=== PATIENT | male | born 1955 | race Caucasian/White ===

== ENCOUNTER → 2019-12-05 13:20 | Outpatient (BNVA) | payer MEDICARE, BC, SELFPAY | PROVIDERS: PCP Nurse Practitioner Family; Visit Provider Nurse Practitioner Family | DX: R05 Cough (principal); Z11.59 Encounter for screening for other viral diseases | CPT/HCPCS: 87071; 87400; 87635; 87880 ==

== ENCOUNTER → 2020-03-06 12:05 | Outpatient (BNVA) | payer MEDICARE, BC, SELFPAY | PROVIDERS: PCP Nurse Practitioner Family; Visit Provider Nurse Practitioner Family | DX: Z94.2 Lung transplant status (principal) | CPT/HCPCS: 87635 ==

== ENCOUNTER 2022-06-22 23:06 | Inpatient (IN) | payer MEDICARE, BC, SELFPAY ==
[2022-06-22 23:09] VITALS: BP 194/108; PULSE 89; RESP 25; TEMP 36.6; O2SAT 99; BMI 25.7
--- NOTE | 2022-06-22 23:30 | W.ED.NAVMDI ---
HPI - Nausea/Vomiting/Diarrhea General: Chief complaint: Nausea/Vomiting/Diarrhea Stated complaint: N\V Time Seen by Provider: 06/22/22 23:19 History of Present Illness: 67-year-old male patient comes in tonight with complaints of nausea vomiting and retching. Patient states that he was started on some antibiotics today for a infected wound to the lower leg. Patient appears nontoxic. Patient does have frequent episodes of retching. Associated nausea: Yes Associated symtoms: Reports nausea; Denies change in vision or chest pain Review of Systems Const: Denies: fever(s) Eyes: Denies: change in vision ENMT: Denies: throat pain Card: Denies: chest pain Resp: Denies: dyspnea GI: Reports: nausea and vomiting; Denies: diarrhea or constipation : Denies: difficulty urinating Skin/Breast: Denies: rash PFSH ED PFSH: Family History (Updated 03/05/20 @ 09:06 by Noemi Quevedo LPN, RT) Father Lung disease COPD Social History (Updated 03/05/20 @ 09:11 by Noemi Quevedo LPN, RT) Smoking and tobacco status: former smoker Quit status (tobacco): has quit using tobacco Former quit date comment: smoked 1.5 PPD x 30 yrs Second hand smoke exposure: No Alcohol intake: former Lives independently: Yes Marital status: Current occupational status: retired History of recent travel: No Current gender identity: Male Physical Exam Const: COMMON NORMALS: alert HENMT: COMMON NORMALS: normocephalic HEAD & SCALP: normocephalic Neck/C-Spine: COMMON NORMALS: full ROM Resp: COMMON NORMALS: normal respiratory effort and clear to auscultation bilaterally AUSCULTATION: clear to auscultation bilaterally Cardio: COMMON NORMALS: regular rate and regular rhythm RATE: regular rate RHYTHM: regular rhythm GI: COMMON NORMALS: Soft to palpation AUSCULTATION: Yes Hyperactive bowel sounds present PALPATION: Yes Soft to palpation : COMMON NORMALS: Yes no CVA tenderness BLADDER/KIDNEY EXAM: Yes no CVA tenderness Back/Pelvis: COMMON NORMALS: no CVA tenderness Extremity: COMMON NORMALS: full ROM Neuro: SENSORIUM/ORIENTATION: Yes alert Skin: COMMON NORMALS: turgor normal GENERAL SKIN EXAM: turgor normal Course ED course: 34, patient's lab come back noting that lipase was 164, patient continues to have episodes of retching with minimal vomit production. Patient does report some mid abdominal pain. Patient also reports that he has a history of pancreatitis. Reviewed the exam and labs with Dr. Delarosa who recommended that patient have a CT scan of the abdomen and pelvis with contrast, and patient would probably need to be admitted for dehydration and persistent vomiting. Vital Signs: Vital signs: Vital Signs Temperature 97.8 F 06/22/22 23:09 Pulse Rate 96 06/22/22 23:48 Respiratory Rate 26 H 06/22/22 23:48 Blood Pressure 188/102 06/22/22 23:48 Pulse Oximetry 100 06/22/22 23:48 Oxygen Delivery Me thod 06/22/22 23:48 MDM - Nausea/Vomiting/Diarrhea Medical Decision Making 67-year-old male patient comes in today with episodes of nausea and vomiting since starting antibiotics today for a infected wound to the left lower leg. Patient appears unwell but not toxic. Patient has a open wound to the left lower iqbal with surrounding redness. No significant edema is noted around the wound. Patient moves all extremities well. Vital signs are normal except for elevation of blood pressure at 194. 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 Differential diagnosis includes sepsis, adverse drug effect, pancreatitis. CBC showed 11,000 white count, lactate was 3.4, potassium was 3.1, creatinine was 1.4, lipase was 164. These were reviewed with Dr. Delarosa who recommended this go ahead and do a CT of the abdomen pelvis to rule out pancreatitis or other abdominal abnormality. CT noted no specific abnormality except for an incidental adrenal nodule. Patient's epigastric pain and nausea and vomiting was brought under control with a total of 4 mg of Haldol and 1 mg of Dilaudid. Believe patient probably has some dehydration and possibly early sepsis due to cellulitis of the leg. Consulted hospitalist Dr. Peter who agreed with plan for admission to hospital for IV fluids, repeat labs, antibiotics. Lab Data : 06/22/22 23:42 06/22/22 23:42 Radiology Impressions Chest X-Ray 06/23/22 00:30 IMPRESSION: No acute findings. Abdomen/Pelvis CT 06/23/22 00:34 IMPRESSION: 1. Negative for acute abdominopelvic pathology. 2. Incidental small left adrenal gland nodule. 3. Non-emergent adrenal CT is recommended. (Reference: Joey) COMMENTS: Consistent with the [employer]'s Incidental Findings Committee white paper (J Am Mayra Radiol 2018): Any incidental renal lesion less than 1 cm or classified as too small to characterize, or any incidental cystic renal lesion characterized as simple-appearing, is likely benign. No follow-up imaging is recommended for these lesions per consensus recommendations based on imaging criteria. REFERENCES: Joey NOBLE, et al. Management of Incidental Adrenal Masses: A White Paper of the ACR Incidental Findings Committee. J Am Mayra Radiol. 2017;14(8):2227-4208. Laboratory Results WBC 11.5 10^3/uL (4.0-10.0) H 06/22/22 23:42 RBC 3.92 10^6/uL (4.1-5.3) L 06/22/22 23:42 Hgb 13.7 g/dL (11.7-16.6) 06/22/22 23:42 Hct 39.9 % (42.0-52.0) L 06/22/22 23:42 MCV 101.8 fl (80-94) H 06/22/22 23:42 MCH 34.9 pg (28.0-34.0) H 06/22/22 23:42 MCHC 34.3 g/dL (30.0-36.0) 06/22/22 23:42 RDW 14.3 % (12.1-15.1) 06/22/22 23:42 Plt Count 225 10^3/cmm (130-400) 06/22/22 23:42 MPV 9.9 fL (7.4-10.4) 06/22/22 23:42 Neut % (Auto) 82.0 % 06/22/22 23:42 Lymph % (Auto) 7.2 % 06/22/22 23:42 [place] % (Auto) 8.9 % 06/22/22 23:42 Eos % (Auto) 0.3 % 06/22/22 23:42 Baso % (Auto) 0.4 % 06/22/22 23:42 Neut # (Auto) 9.42 10^3/uL (1.8-7.7) H 06/22/22 23:42 Lymph # (Auto) 0.8 10^3/uL (0.8-4.8) 06/22/22 23:42 [place] # (Auto) 1.0 10^3/uL (0.2-0.9) H 06/22/22 23:42 Eos # (Auto) 0.0 10^3/uL (0.0-0.8) 06/22/22 23:42 Baso # (Auto) 0.1 10^3/uL (0.0-0.1) 06/22/22 23:42 Nucleated RBC % (auto) 0 % 06/22/22 23:42 Nucleated RBCs # 0.0 /100WBC 06/22/22 23:42 Sodium 138 mmol/L (136-145) 06/22/22 23:42 Potassium 3.1 mmol/L (3.5-5.1) L 06/22/22 23:42 Chloride 102 mmol/L (98-107) 06/22/22 23:42 Carbon Dioxide 16 mmol/L (22-29) L 06/22/22 23:42 Anion Gap 23.1 (5-19) H 06/22/22 23:42 BUN 15 mg/dL (8-23) 06/22/22 23:42 Creatinine 1.4 mg/dL (0.7-1.2) H 06/22/22 23:42 GFR Calculation 50.4 mL/min (90-130) L 06/22/22 23:42 Glucose 161 mg/dL (65-115) H 06/22/22 23:42 Calculated Osmolality 290 mOsm/kg (285-295) 06/22/22 23:42 Lactic Acid 3.4 mmol/L (0.5-2.2) H 06/22/22 23:42 Calcium 9.6 mg/dL (8.5-10.5) 06/22/22 23:42 Total Bilirubin 0.5 mg/dL (0.15-1.2) 06/22/22 23:42 AST 23 U/L (0-40) 06/22/22 23:42 ALT 12 U/L (0-41) 06/22/22 23:42 Alkaline Phosphatase 91 U/L (40-130) 06/22/22 23:42 Troponin T Baseline 19 ng/L (0-15) H 06/22/22 23:42 C-Reactive Protein 26.4 mg/L (0.0-4.9) H 06/22/22 23:42 Total Protein 7.1 g/dL (6.6-8.7) 06/22/22 23:42 Albumin 4.3 g/dL (3.5-5.2) 06/22/22 23:42 Globulin 2.8 g/dL (1.3-4.6) 06/22/22 23:42 Lipase 162 U/L (13-60) H 06/22/22 23:42 Urine Color Violet[place] (Yellow) 06/23/22 00:00 Urine Appearance Sl hazy (CLEAR) A 06/23/22 00:00 Urine pH 5 (5-7) 06/23/22 00:00 Ur Specific [place] 1.020 (1.005-1.030) 06/23/22 00:00 Urine Protein 1+ (Negative) H 06/23/22 00:00 Urine Glucose (UA) Trace (Normal) H 06/23/22 00:00 Urine Ketones 2+ (Negative) H 06/23/22 00:00 Urine Blood Trace (Negative) H 06/23/22 00:00 Urine Nitrate Negative (Negative) 06/23/22 00:00 Urine Bilirubin 1+ (Negative) H 06/23/22 00:00 Urine Urobilinogen Norm mg/dL (Negative) 06/23/22 00:00 Ur Leukocyte Esterase Negative (Negative) 06/23/22 00:00 Urine RBC 0-4 /hpf (0-2) H 06/23/22 00:00 Urine WBC 0-4 /hpf (0-5) H 06/23/22 00:00 Ur Squamous Epith Cells 0-4 /hpf (0-5) H 06/23/22 00:00 Amorphous Sediment 1+ /hpf 06/23/22 00:00 Urine Bacteria Trace /hpf (NONE) 06/23/22 00:00 Hyaline Casts 5-10 /lpf H 06/23/22 00:00 Fine Granular Casts 0-4 /lpf H 06/23/22 00:00 Urine Mucus 2+ /hpf 06/23/22 00:00 EKG Data EKG 1: EKG interpretation date: 06/23/22 EKG interpretation time: 00:01 Prior EKG tracings: not available for review Interpretation: EKG shows a sinus rhythm with a regular rhythm of 83 bpm with frequent PVCs. No ST elevation or ectopy otherwise is noted. No prior exam was available for comparison. 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
--- NOTE | 2022-06-22 23:35 | ECG_ITS ---
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 Measurements Intervals [place] Rate: 83 P: 57 GA: 149 QRS: 66 QRSD: 97 T: 76 QT: 408 QTc: 482 Interpretive Statements SINUS RHYTHM WITH FREQUENT VENTRICULAR PREMATURE COMPLEXES MODERATE ST DEPRESSION [0.05+ mV ST DEPRESSION] No previous ECG available for comparison Electronically Signed On 06-23-2022 15:02:46 CDT by Tristian Valenzuela M.D. [email or web address] of [email or web address]. [email or web address] medical [email or web address]/store/OM/[id number]
[2022-06-22 23:45] VITALS: BP 188/102; PULSE 75; RESP 18; O2SAT 100
[2022-06-22] MEDS: sodium chloride 0.9% 1,000 ML 999 ML IV (23:45)
[2022-06-22] MEDS: haloperidol inj 5 mg/mL INJ 1 mL 2 MG IVP (23:45)
[2022-06-22 23:46] LABS: Basophils # 0.1 10^3/uL (0.0-0.1); Basophils % 0.4 %; Eosinophils % 0.3 %; Hematocrit 39.9 % (42.0-52.0); Hemoglobin 13.7 g/dL (11.7-16.6); Lymphocytes # 0.8 10^3/uL (0.8-4.8); Lymphocytes % 7.2 %; Mean Corpuscular HGB Conc 34.3 g/dL (30.0-36.0); Mean Corpuscular Hemoglobin 34.9 pg (28.0-34.0); Mean Corpuscular Volume 101.8 fl (80-94); Mean Platelet Volume 9.9 fL (7.4-10.4); Monocytes % 8.9 %; Neutrophils # 9.42 10^3/uL (1.8-7.7); Nucleated Red Blood Cells % 0 %; Platelet Count 225 10^3/cmm (130-400); Red Blood Count 3.92 10^6/uL (4.1-5.3); Red Cell Distribution Width 14.3 % (12.1-15.1); White Blood Count 11.5 10^3/uL (4.0-10.0)
[2022-06-22 23:48] VITALS: BP 188/102; PULSE 96; RESP 26; O2SAT 100
[2022-06-23] VITALS (16 sets, daily range): BP systolic 131–182; BP diastolic 72–141; PULSE 66–117; RESP 18–22; TEMP 36.7–37.1; O2SAT 95–100
[2022-06-23 00:08] LABS: Troponin(5th) Baseline 19 ng/L (0-15)
[2022-06-23 00:09] LABS: Lactic Sepsis W/Reflex 3.4 mmol/L (0.5-2.2)
[2022-06-23] MEDS: haloperidol inj 5 mg/mL INJ 1 mL 2 MG IVP (00:13)
[2022-06-23 00:25] LABS: Alanine Aminotransferase 12 U/L (0-41); Albumin Level 4.3 g/dL (3.5-5.2); Alkaline Phosphatase 91 U/L (40-130); Anion Gap 23.1 (5-19); Aspartate Amino Transferase 23 U/L (0-40); Blood Urea Nitrogen 15 mg/dL (8-23); C Reactive Protein 26.4 mg/L (0.0-4.9); Calcium 9.6 mg/dL (8.5-10.5); Carbon Dioxide 16 mmol/L (22-29); Chloride 102 mmol/L (98-107); Globulin 2.8 g/dL (1.3-4.6); Glomerular Filtration Rate 50.4 mL/min (90-130); Glucose 161 mg/dL (65-115); Lipase 162 U/L (13-60); Osmolality Calculated 290 mOsm/kg (285-295); Potassium 3.1 mmol/L (3.5-5.1); Sodium 138 mmol/L (136-145); Total Bilirubin 0.5 mg/dL (0.15-1.2); Total Protein 7.1 g/dL (6.6-8.7)
--- NOTE | 2022-06-23 00:30 | XRR_ITS ---
PROCEDURE INFORMATION: Exam: XR Chest Exam date and time: 06/23/2022 12:40 AM Age: 67 years old Clinical indication: Prior surgery; Surgery type: Double lung transplant; Patient HX: C/O persistent n/v. ; Additional info: Nausea and vomiting TECHNIQUE: Imaging protocol: Radiologic exam of the chest. Views: 1 view. COMPARISON: No relevant prior studies available. FINDINGS: Lungs: Unremarkable. No consolidation. Pleural spaces: Unremarkable. No pleural effusion. No pneumothorax. Heart/Mediastinum: Unremarkable. No cardiomegaly. Bones/joints: Unremarkable. XR/XR chest 1V portable [id number] IMPRESSION: No acute findings.
--- NOTE | 2022-06-23 00:34 | CTR_ITS ---
PROCEDURE INFORMATION: Exam: CT Abdomen And Pelvis With Contrast Exam date and time: 06/23/2022 12:53 AM Age: 67 years old Clinical indication: Nausea and vomiting; Prior surgery; Surgery type: Double lung transplant; Patient HX: C/O persistent n/v. ; Additional info: Pancreatitis TECHNIQUE: Imaging protocol: Computed tomography of the abdomen and pelvis with contrast. Radiation optimization: All CT scans at this facility use at least one of these dose optimization techniques: automated exposure control; mA and/or kV adjustment per patient size (includes targeted exams where dose is matched to clinical indication); or iterative reconstruction. Contrast material: OMNI 350; Contrast volume: 75 ml; Contrast route: INTRAVENOUS (IV); COMPARISON: CR XR chest 1V portable [id number] 06/23/2022 12:40 AM RADIATION DOSE METRICS: Total DLP (mGy-cm): 454.07 FINDINGS: Liver: Multiple simple liver cysts in both lobes. Largest individual cyst in the inferior right hepatic lobe measures 2 cm transverse diameter. Gallbladder and bile ducts: Normal. No calcified stones. No ductal dilation. Pancreas: Normal. No ductal dilation. Spleen: Normal. No splenomegaly. Adrenal glands: Left adrenal gland nodule measures 2.2 cm x 1.8 cm. Kidneys and ureters: 10 mm simple right renal lower pole cortical cyst. Negative for hydronephrosis. Stomach and bowel: Unremarkable. No obstruction. No mucosal thickening. Appendix: Normal appendix. Intraperitoneal space: Unremarkable. No free air. No significant fluid collection. Vasculature: Unremarkable. No abdominal aortic aneurysm. Diffuse calcified atherosclerotic plaques. Lymph nodes: Unremarkable. No enlarged lymph nodes. Urinary bladder: Unremarkable as visualized. Reproductive: Unremarkable as visualized. Bones/joints: Unremarkable. No acute fracture. Soft tissues: Unremarkable. Fat containing right inguinal hernia suspected. CT/CT abdomen pelvis w con* [id number] IMPRESSION: 1. Negative for acute abdominopelvic pathology. 2. Incidental small left adrenal gland nodule. 3. Non-emergent adrenal CT is recommended. (Reference: Joey) COMMENTS: Consistent with the [employer]'s Incidental Findings Committee white paper (J Am Mayra Radiol 2018): Any incidental renal lesion less than 1 cm or classified as too small to characterize, or any incidental cystic renal lesion characterized as simple-appearing, is likely benign. No follow-up imaging is recommended for these lesions per consensus recommendations based on imaging criteria. REFERENCES: Joey NOBLE et al. Management of Incidental Adrenal Masses: A White Paper of the ACR Incidental Findings Committee. J Am Mayra Radiol. 2017;14(8):0271-7029.
[2022-06-23 00:58] LABS: Reflex Lactate Order REFLEX LACTIC ORDERD
[2022-06-23] MEDS: iohexol 350 mg/mL 500 mL Btl (per mL) IV (00:58)
[2022-06-23] MEDS: sodium chloride 0.9% 1,000 ML 999 ML IV (01:06)
[2022-06-23] MEDS: lidocaine 1% 5 ML in potassium chloride premix 100 ML 50 ML IV (01:06)
[2022-06-23] MEDS: HYDROmorphone 1 mg/mL INJ 1 mL IVP (01:06)
[2022-06-23 01:15] LABS: Urine Color Amber (Yellow)
[2022-06-23 01:16] LABS: Add Urine Microscopic? YES; Bilirubin Urine 1+ (Negative); Blood Urine Trace (Negative); Glucose Urine UA Trace (Normal); Ketones Urine 2+ (Negative); Leukocyte Esterase Urine Negative (Negative); Nitrate Urine Negative (Negative); Protein Urine 1+ (Negative); Urine Appearance SL Hazy (CLEAR); Urobilinogen Urine Norm (Negative); pH Urine 5 (5-7)
[2022-06-23 01:17] LABS: Add Urine Culture? No; Amorphous Sediment Urine 1+ /hpf; Bacteria Urine TRACE /hpf; Fine Granular Casts Urine 0-4 /lpf; Mucus Urine 2+ /hpf; RBC Urine 0-4 /hpf (0-2); Squamous Epithelial Cell Urine 0-4 /hpf (0-5); WBC Urine 0-4 /hpf (0-5)
[2022-06-23 02:13] LABS: Lactic Acid level (Lactate) 1.4 mmol/L (0.5-2.2)
[2022-06-23 02:16] LABS: Troponin 5 2HR 17.05 ng/L (0-15)
[2022-06-23 02:17] LABS: Triglycerides 117 mg/dL (0-150)
[2022-06-23 02:24] LABS: Troponin 5 2HR Delta -1.95 ABS# (0-10)
[2022-06-23] MEDS: piperacillin-tazobactam 3.375 GM in sodium chloride 0.9% (plus) 50 ML IV ×3 (02:39→17:14)
[2022-06-23] MEDS: vancomycin 1,000 MG in sodium chloride 0.9% 250 ML 250 MG IV ×2 (04:14→22:54)
--- NOTE | 2022-06-23 04:40 | ECG_ITS ---
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 Measurements Intervals [place] Rate: 81 P: 63 ME: 166 QRS: 55 QRSD: 94 T: 62 QT: 408 QTc: 474 Interpretive Statements SINUS RHYTHM WITH FREQUENT VENTRICULAR PREMATURE COMPLEXES ABNORMAL RHYTHM ECG Compared to ECG 06/22/2022 23:57:50 ST (T wave) deviation no longer present Electronically Signed On 06-23-2022 15:07:06 CDT by Tristian Valenzuela M.D. [id number]
[2022-06-23] MEDS: enoxaparin 40 mg/0.4 mL Syringe SUBCUT (05:45)
[2022-06-23 05:50] LABS: Troponin 5 6HR 18.07 ng/L (0-15)
[2022-06-23 05:51] LABS: Troponin 5 6HR Delta -0.93 ng/L (0-12)
--- NOTE | 2022-06-23 06:30 | PM.HP ---
Providers/Chief Complaint Admitting Physician: Tika Peter MD Primary Care Provider: Sade Salas APN Chief Complaint: N\V History of Present Illness Harry Handy is a 67 year old male with a past medical history of lung transplant, currently on immunosuppressants presenting today with cellulitis over the left leg. Per patient he was in his usual state of health until last week on Monday when while he was going up the stairs and hit his iqbal against the stairs. He had a scrape as a result. Then starting 3 days ago the area started to look red, tender, swollen. He feels hot and cold though has not measured his temperature. No other injuries at any site. He does not think a splinter went through. He was prescribed doxycycline as an outpatient, however has not yet started his medication, he was concerned about how quickly the changes on his leg were progressing and therefore decided to come into the emergency room. In the ER here here additionally was noted to be retching and gagging and had some abdominal discomfort for which CT of the abdomen and pelvis was performed, all was overall unremarkable. Review of Systems General: Reports: 10 or more systems reviewed and unremarkable except in HPI and below Const: Denies: fever(s), chills or body aches Eyes: Denies: change in vision, blurry vision or photophobia ENMT: Reports: hoarseness; Denies: throat pain, enlarged tonsils, odynophagia or nasal congestion Card: Denies: chest pain, palpitations, irregular heart rhythm, edema, swelling of feet/ankles, lightheadedness, pre-syncope, dyspnea on exertion or orthopnea Resp: Denies: dyspnea, productive cough, non-productive cough, wheezing, stridor, pain on inspiration, change in phlegm color, hemoptysis or chest congestion GI: Denies: abdominal pain, nausea, vomiting, hematemesis, coffee ground emesis, dysphagia, heartburn, diarrhea, constipation, GI cramping, change in stool character, hematochezia or melena : Denies: flank pain, dysuria, urinary frequency, urinary urgency, urinary hesitancy or hematuria Musc: Denies: neck pain, back pain, extremity pain, joint swelling, joint warmth or deformity Neuro: Denies: headache(s), numbness in extremities, weakness in extremities, sensory changes, difficulty walking, frequent falls, dizziness, vertigo, behavioral changes, Slurred speech present or seizure-like activity Psych: Denies: anxiety, depression, suicidal ideation or homicidal ideation Endo: Denies: polyuria, polydipsia, tired all the time, cold intolerance or hot flashes Celso/Lymph: Denies: easy bruising or easy bleeding Medications/Allergies Home Medications Medication Instructions Recorded Confirmed Last Taken Type acyclovir 200 mg capsule 200 mg PO BID 12/05/19 03/05/20 Unknown History alendronate 70 mg/75 mL oral PO 12/05/19 03/05/20 Unknown History solution atorvastatin 40 mg tablet 40 mg PO DAILY 12/05/19 03/05/20 Unknown History azathioprine 50 mg tablet 150 mg PO DAILY 12/05/19 03/05/20 Unknown History calcium carbonate 500 mg-vitamin each PO 12/05/19 03/05/20 Unknown History D3 5 mcg (200 unit) oral powder pack citalopram 10 mg tablet 10 mg PO DAILY 12/05/19 03/05/20 Unknown History loratadine 10 mg tablet (Allergy 10 mg PO DAILY 12/05/19 03/05/20 Unknown History Relief (loratadine)) omeprazole 20 mg capsule,delayed 20 mg PO DAILY 12/05/19 03/05/20 Unknown History release ondansetron 8 mg oral soluble film 8 mg PO Q12H 12/05/19 03/05/20 Unknown History prednisolone 5 mg tablet 5 mg PO QAM 12/05/19 03/05/20 Unknown History prednisone 10 mg tablet 10 mg PO DAILY 12/05/19 03/05/20 Unknown History sulfamethoxazole 800 1 tab PO BID 12/05/19 03/05/20 Unknown History mg-trimethoprim 160 mg tablet (Bactrim DS) tacrolimus 1 mg capsule, 1 mg PO Q12H 12/05/19 03/05/20 Unknown History immediate-release trazodone 50 mg tablet 25 mg PO DAILY 12/05/19 03/05/20 Unknown History Allergies Allergy/AdvReac Type Severity Reaction Status Date / Time morphine Allergy RASH Verified 03/05/20 08:09 PFSH Acute PFSH: Medical History (Updated 06/23/22 @ 06:49 by Tika Peter MD) Adrenal adenoma Afib Anemia Anxiety CKD (chronic kidney disease), stage II COPD (chronic obstructive pulmonary disease) Depression Hx MRSA infection Hx of cytomegalovirus infection Hyperlipidemia Hypertension Macrocytosis JOZEF (obstructive sleep apnea) Osteopenia Vocal cord polyp Surgical History (Updated 06/23/22 @ 06:49 by Tika Peter MD) History of esophagogastroduodenoscopy (EGD) (~2016) History of vocal cord polypectomy (~08/2015) Hx of bilateral cataract extraction Hx of colonoscopy (~2016) Hx of hernia repair (~2017) Hx of lung transplant (~05/2010) bilateral Lung transplant status Family History Father Lung disease COPD Social History Smoking and tobacco status: former smoker Quit status (tobacco): has quit using tobacco Former quit date comment: smoked 1.5 PPD x 30 yrs Second hand smoke exposure: No Alcohol intake: former Lives independently: Yes Marital status: Current occupational status: retired History of recent travel: No Current gender identity: Male Vitals/I&O/Wt Last Vital Signs Temp 98.7 F 06/23/22 04:17 Pulse 87 06/23/22 04:17 Resp 19 H 06/23/22 04:17 BP 167/75 06/23/22 04:17 Pulse Ox 97 06/23/22 04:17 O2 Del Method 06/23/22 03:36 06/22/22 06/22/22 06/23/22 14:59 22:59 06:59 Intake Total 2705 / 2705 Output Total 200 / 200 Balance 2505 / 2505 Weight last 48 hrs Weight 70.307 kg Physical Exam Narrative: General: No acute distress, AO x3 HEENT: PERRLA, pupils bilaterally equal and reactive, pallors not present Chest: Normal vesicular breath sounds, no added sounds, equal good air entry bilaterally CVS: S1-S2 regular, no murmurs, no tachycardia, no gallops, no rubs Abdomen: Soft, nontender, no organomegaly, bowel sounds present Neuro: No focal deficits, no facial deformity, AO x3, power 5/5 in all limbs Extremities: Left lower extremity with shallow overlying ulceration over left mid iqbal with significant surrounding cellulitis. Area is red warm and tender to touch. Data : 06/22/22 23:42 06/22/22 23:42 Other Labs: Radiology Impressions Chest X-Ray 06/23/22 00:30 IMPRESSION: No acute findings. Abdomen/Pelvis CT 06/23/22 00:34 IMPRESSION: 1. Negative for acute abdominopelvic pathology. 2. Incidental small left adrenal gland nodule. 3. Non-emergent adrenal CT is recommended. (Reference: Joey) COMMENTS: Consistent with the [employer]'s Incidental Findings Committee white paper (J Am Mayra Radiol 2018): Any incidental renal lesion less than 1 cm or classified as too small to characterize, or any incidental cystic renal lesion characterized as simple-appearing, is likely benign. No follow-up imaging is recommended for these lesions per consensus recommendations based on imaging criteria. REFERENCES: Joey NOBLE, et al. Management of Incidental Adrenal Masses: A White Paper of the ACR Incidental Findings Committee. J Am Mayra Radiol. 2017;14(8):5758-0733. Laboratory Results WBC 11.5 10^3/uL (4.0-10.0) H 06/22/22 23:42 RBC 3.92 10^6/uL (4.1-5.3) L 06/22/22 23:42 Hgb 13.7 g/dL (11.7-16.6) 06/22/22 23:42 Hct 39.9 % (42.0-52.0) L 06/22/22 23:42 MCV 101.8 fl (80-94) H 06/22/22 23:42 MCH 34.9 pg (28.0-34.0) H 06/22/22 23:42 MCHC 34.3 g/dL (30.0-36.0) 06/22/22 23:42 RDW 14.3 % (12.1-15.1) 06/22/22 23:42 Plt Count 225 10^3/cmm (130-400) 06/22/22 23:42 MPV 9.9 fL (7.4-10.4) 06/22/22 23:42 Neut % (Auto) 82.0 % 06/22/22 23:42 Lymph % (Auto) 7.2 % 06/22/22 23:42 Barry % (Auto) 8.9 % 06/22/22 23:42 Eos % (Auto) 0.3 % 06/22/22 23:42 Baso % (Auto) 0.4 % 06/22/22 23:42 Neut # (Auto) 9.42 10^3/uL (1.8-7.7) H 06/22/22 23:42 Lymph # (Auto) 0.8 10^3/uL (0.8-4.8) 06/22/22 23:42 Barry # (Auto) 1.0 10^3/uL (0.2-0.9) H 06/22/22 23:42 Eos # (Auto) 0.0 10^3/uL (0.0-0.8) 06/22/22 23:42 Baso # (Auto) 0.1 10^3/uL (0.0-0.1) 06/22/22 23:42 Nucleated RBC % (auto) 0 % 06/22/22 23:42 Nucleated RBCs # 0.0 /100WBC 06/22/22 23:42 Sodium 138 mmol/L (136-145) 06/22/22 23:42 Potassium 3.1 mmol/L (3.5-5.1) L 06/22/22 23:42 Chloride 102 mmol/L (98-107) 06/22/22 23:42 Carbon Dioxide 16 mmol/L (22-29) L 06/22/22 23:42 Anion Gap 23.1 (5-19) H 06/22/22 23:42 BUN 15 mg/dL (8-23) 06/22/22 23:42 Creatinine 1.4 mg/dL (0.7-1.2) H 06/22/22 23:42 GFR Calculation 50.4 mL/min (90-130) L 06/22/22 23:42 Glucose 161 mg/dL (65-115) H 06/22/22 23:42 Calculated Osmolality 290 mOsm/kg (285-295) 06/22/22 23:42 Lactic Acid 3.4 mmol/L (0.5-2.2) H 06/22/22 23:42 Lactic Acid (Sepsis) 1.4 mmol/L (0.5-2.2) 06/23/22 01:46 Calcium 9.6 mg/dL (8.5-10.5) 06/22/22 23:42 Total Bilirubin 0.5 mg/dL (0.15-1.2) 06/22/22 23:42 AST 23 U/L (0-40) 06/22/22 23:42 ALT 12 U/L (0-41) 06/22/22 23:42 Alkaline Phosphatase 91 U/L (40-130) 06/22/22 23:42 Troponin T Baseline 19 ng/L (0-15) H 06/22/22 23:42 Troponin T 120 Minute 17.05 ng/L (0-15) H 06/23/22 01:46 Delta Troponin T -1.95 ABS# (0-10) L 06/23/22 01:46 Troponin T Hi Sens 6Hr 18.07 ng/L (0-15) H 06/23/22 05:17 Troponin T Hi Sens 6Hr Delta -0.93 ng/L (0-12) L 06/23/22 05:17 C-Reactive Protein 26.4 mg/L (0.0-4.9) H 06/22/22 23:42 Total Protein 7.1 g/dL (6.6-8.7) 06/22/22 23:42 Albumin 4.3 g/dL (3.5-5.2) 06/22/22 23:42 Globulin 2.8 g/dL (1.3-4.6) 06/22/22 23:42 Triglycerides 117 mg/dL (0-150) 06/23/22 01:46 Lipase 162 U/L (13-60) H 06/22/22 23:42 Urine Color Violetta (Yellow) 06/23/22 00:00 Urine Appearance Sl hazy (CLEAR) A 06/23/22 00:00 Urine pH 5 (5-7) 06/23/22 00:00 Ur Specific [place] 1.020 (1.005-1.030) 06/23/22 00:00 Urine Protein 1+ (Negative) H 06/23/22 00:00 Urine Glucose (UA) Trace (Normal) H 06/23/22 00:00 Urine Ketones 2+ (Negative) H 06/23/22 00:00 Urine Blood Trace (Negative) H 06/23/22 00:00 Urine Nitrate Negative (Negative) 06/23/22 00:00 Urine Bilirubin 1+ (Negative) H 06/23/22 00:00 Urine Urobilinogen Norm mg/dL (Negative) 06/23/22 00:00 Ur Leukocyte Esterase Negative (Negative) 06/23/22 00:00 Urine RBC 0-4 /hpf (0-2) H 06/23/22 00:00 Urine WBC 0-4 /hpf (0-5) H 06/23/22 00:00 Ur Squamous Epith Cells 0-4 /hpf (0-5) H 06/23/22 00:00 Amorphous Sediment 1+ /hpf 06/23/22 00:00 Urine Bacteria Trace /hpf (NONE) 06/23/22 00:00 Hyaline Casts 5-10 /lpf H 06/23/22 00:00 Fine Granular Casts 0-4 /lpf H 06/23/22 00:00 Urine Mucus 2+ /hpf 06/23/22 00:00 Micro: Microbiology 06/23/22 01:44 Blood Culture - Preliminary Blood SPECIMEN COLLECTED 06/23/22 01:46 Blood Culture - Preliminary Blood SPECIMEN COLLECTED A&P Assessment and plan (1) Cellulitis of left leg: Patient with a history of injury from floorboard about 1 week ago, now with worsening cellulitis over the past 3 days. Given that patient is immunocompromised, he may not mount a lorelei septic response, however given rapidity of symptom progression over the last 3 days, would be prudent to admit him to the hospital and start him on IV antibiotics. Will start empiric antibiotic treatment with piperacillin tazobactam and vancomycin. Blood cultures have been taken in the ER prior to initiation of antibiotics. He is clinically euvolemic, no indication for IV fluids at this time. Lactate has normalized after receiving a sepsis bolus in the emergency room. Will check CT of the lower extremity to rule out any foreign body such as splinters within the wound. Also will evaluate for underlying abscess. CT without contrast ordered in view of CKD creatinine 1.4 and patient just having received contrast for a CT abdomen study. (2) Hx of lung transplant: Continue tacrolimus. His medication list is not currently updated. Patient states taking 7 mg of tacrolimus per day, split dose 4 mg in the morning and 3 mg in the evening. This has been confirmed with both his external medication history. He does not remember his prednisone dose, however per external med list he takes 5 mg/day. This dose is being continued at this present time. He does not recall taking azathioprine or acyclovir. Last refills for both of these medications were provided in February to last through May. His chart has a past history of CMV infection. Will need to confirm with his network infrastructure architect Dr. Savage at [facility] if patient is still on these medications. Seems unusual that he would be of of the immunosuppressant and antiviral prophylaxis after several years. He gets these medications through mail order pharmacy. His other medications come through [facility]. Attestations Medical Necessity Statement*: Anticipate greater than 2 midnight admission for IV antibiotics for quickly progressing cellulitis in an immunocompromised patient. Coding Level of Care Code Acute Slag Skimmer for Tia Christian Diagnoses Cellulitis of left leg L03.116 Hx of lung transplant Z94.2
--- NOTE | 2022-06-23 06:45 | CT_ITS ---
WS: [id number] NONCONTRAST CT LEFT LOWER LEG TECHNIQUE: NONCONTRAST CT LEFT LOWER LEG with coronal and sagittal reformatted images. CLINICAL INFORMATION: Cellulitis x 1 week COMPARISON: None. DLP: 666.[address] scans at [facility] use at least one of these dose optimization techniques: automated e xposure control; mA and/or kV adjustment per patient size (includes targeted exams where dose is matc hed to clinical indication); or iterative reconstruction. FINDINGS: Soft tissue edema anterior lower leg just above the ankle along the tibia. Small amount of soft tissu e induration. Recommend correlation for soft tissue infection and cellulitis. No evidence of drainabl e abscess or fluid collection. No acute fractures. No evidence of osteomyelitis. Mild to moderate tricompartmental arthritis with ese int space narrowing. Vascular calcification. CT/CT lower leg LT wo con* [id number] IMPRESSION: 1. Mild soft tissue edema lower leg anteriorly overlying the distal tibia. Rec ommend correlation for cellulitis. 2. No evidence of drainable abscess or fluid collection. 3. No evidence of osteomyelitis.
[2022-06-23] MEDS: ondansetron 2 mg/ML SDV 2 mL 4 MG IVP (06:53)
--- NOTE | 2022-06-23 08:05 | PC.PHAR ---
pt states he takes care of his own medications-pt states he didnt get the keflex 500mg tid-[facility] not open to verify if picked up or not ext med history shows last filled 06/22/22 10d/s-pt states he thinks he is taking imuran 50mg 3tabs daily- pt states he takes 3 yellow tabs daily ext med history shows last filled 10/08/21 and 12/15/21 90d/s-pt states he stop taking eliquis 5mg bid about 6 months ago ext med history shows last filled 01/12/22 30d/s-pt states he was suppose to be on a bactrim ds one tab on mon,wed and fri states he hasnt taken in 6 months to a year
--- NOTE | 2022-06-23 08:12 | P.MISC_ITS ---
Miscellaneous Note Note: We will request records from [facility] to verify his medications Patient has been on immunosuppressant for last 12 years, he is vaccinated for COVID-19 Patient has been getting oral antibiotics for last 10 days without significant improvement Patient is laying flat Awake and alert Currently on room air Looks euvolemic Left leg wound with cellulitis, mild purulent base noted Mild edema, Awake and alert Nonfocal neuro exam S1, S2 with Assessment plan I would diagnose patient with sepsis considering high lactic acid, endorgan damage with creatinine above normal, leukocytosis, tachycardia patient has received 2 L of IV fluids, blood cultures taken, Continue antibiotics started by wet wash assembler We will request records from [facility] to verify his medications Patient has been on tacrolimus twice a day regimen Will clarify if he has been on prednisone lately I will check for CRP, D-dimer Hypokalemia: Repleted, check magnesium level Lipase 162 no abdominal symptoms for now Patient is stating that he takes prednisone daily as well I will dose of Zosyn renally as well We will follow-up with CT scan of leg
[2022-06-23] MEDS: metoprolol tartrate 25 mg Tablet PO ×2 (08:44→20:26)
[2022-06-23] MEDS: predniSONE 5 mg Tablet PO (08:44)
[2022-06-23] MEDS: citalopram 20 mg Tablet 10 MG PO (08:46)
[2022-06-23] MEDS: trazodone 50 mg Tablet 25 MG PO (08:46)
[2022-06-23] MEDS: amlodipine 10 mg Tablet PO (08:46)
[2022-06-23] MEDS: atorvastatin 40 mg Tablet PO (08:46)
[2022-06-23] MEDS: pantoprazole DR 40 mg Tablet PO (08:46)
[2022-06-23] MEDS: sodium chloride 0.9% 1,000 ML 75 ML IV ×2 (08:47→20:28)
[2022-06-23] MEDS: tacrolimus 0.5 mg Capsule 4 MG PO (09:00)
[2022-06-23 10:35] LABS: Lactate (Lactic Acid level) 2.2 mmol/L (0.5-2.2)
[2022-06-23] MEDS: tacrolimus 0.5 mg Capsule 3 MG PO (17:15)
[2022-06-24] MEDS: piperacillin-tazobactam 3.375 GM in sodium chloride 0.9% (plus) 50 ML IV ×3 (01:45→17:29)
[2022-06-24 04:20] VITALS: BP 159/85; PULSE 65; RESP 16; TEMP 37; O2SAT 97
[2022-06-24] MEDS: enoxaparin 40 mg/0.4 mL Syringe SUBCUT (04:24)
[2022-06-24 05:10] LABS: Basophils % 0.5 %; Eosinophils # 0.1 10^3/uL (0.0-0.8); Hematocrit 37.5 % (42.0-52.0); Hemoglobin 12.3 g/dL (11.7-16.6); Lymphocytes # 1.3 10^3/uL (0.8-4.8); Lymphocytes % 16.3 %; Mean Corpuscular HGB Conc 32.8 g/dL (30.0-36.0); Mean Corpuscular Hemoglobin 34.6 pg (28.0-34.0); Mean Corpuscular Volume 105.6 fl (80-94); Mean Platelet Volume 9.8 fL (7.4-10.4); Monocytes # 1.1 10^3/uL (0.2-0.9); Monocytes % 13.5 %; Neutrophils # 5.42 10^3/uL (1.8-7.7); Neutrophils % 67.8 %; Nucleated Red Blood Cells % 0 %; Platelet Count 217 10^3/cmm (130-400); Red Blood Count 3.55 10^6/uL (4.1-5.3); Red Cell Distribution Width 14.4 % (12.1-15.1)
[2022-06-24 05:46] LABS: Alanine Aminotransferase 18 U/L (0-41); Albumin Level 3.8 g/dL (3.5-5.2); Alkaline Phosphatase 75 U/L (40-130); Aspartate Amino Transferase 57 U/L (0-40); Blood Urea Nitrogen 8 mg/dL (8-23); C Reactive Protein 7.8 mg/L (0.0-4.9); Carbon Dioxide 22 mmol/L (22-29); Chloride 107 mmol/L (98-107); Globulin 2.5 g/dL (1.3-4.6); Glomerular Filtration Rate 83.9 mL/min (90-130); Glucose 67 mg/dL (65-115); Magnesium 1.6 mg/dL (1.7-2.3); Osmolality Calculated 287 mOsm/kg (285-295); Sodium 140 mmol/L (136-145); Total Bilirubin 0.5 mg/dL (0.15-1.2); Total Protein 6.3 g/dL (6.6-8.7)
[2022-06-24 05:49] LABS: Anion Gap 14.5 (5-19); Potassium 3.5 mmol/L (3.5-5.1)
[2022-06-24 07:49] VITALS: BP 162/80; PULSE 75; RESP 18; TEMP 36.7; O2SAT 97
[2022-06-24] MEDS: tacrolimus 0.5 mg Capsule 4 MG PO (07:54)
[2022-06-24] MEDS: pantoprazole DR 40 mg Tablet PO (07:55)
[2022-06-24] MEDS: atorvastatin 40 mg Tablet PO (07:55)
[2022-06-24] MEDS: citalopram 20 mg Tablet 10 MG PO (07:55)
[2022-06-24] MEDS: metoprolol tartrate 25 mg Tablet PO ×2 (07:55→21:13)
[2022-06-24] MEDS: amlodipine 10 mg Tablet PO (07:55)
[2022-06-24] MEDS: predniSONE 5 mg Tablet PO (07:55)
--- NOTE | 2022-06-24 08:47 | P.PN_ITS ---
Subjective Subjective: Patient stating that he is feeling better No overnight events His white count has improved No fever Vitals/I&O/Wt Last Vital Signs Temp 98.0 F 06/24/22 07:49 Pulse 75 06/24/22 07:49 Resp 18 06/24/22 07:49 BP 162/80 06/24/22 07:49 Pulse Ox 97 06/24/22 07:49 O2 Del Method 06/24/22 07:49 06/23/22 06/24/22 06/24/22 22:59 06:59 14:59 Intake Total 1166.25 / 1936.25 700 / 2636.25 Output Total 800 / 800 500 / 1300 Balance 366.25 / 1136.25 200 / 1336.25 Weight last 48 hrs Weight 70.307 kg Physical Exam Narrative: Patient is sitting in a chair In good mood patient is sitting in a chair In good spirits Nonfocal neuro exam Currently he is on room air Hemodynamically stable Left leg wound with cellulitis and mild purulent drainage There is edema of his ankle extending up to the mid dorsum of his foot Patient is keeping his left leg elevated S1, S2 Data : 06/24/22 04:06 06/24/22 04:06 Micro: Microbiology 06/23/22 01:44 Blood Culture - Preliminary Blood NEGATIVE TO DATE 06/23/22 01:46 Blood Culture - Preliminary Blood NEGATIVE TO DATE A&P Assessment and plan (1) Hx of lung transplant: (2) Nausea with vomiting: Qualifiers: Vomiting type: unspecified Qualified Code(s): R11.2 - Nausea with vomiting, unspecified (3) Cellulitis of left leg: Plan Sepsis related to purulent cellulitis continue IV antibiotics, I will discontinue IV fluids continue vancomycin and Zosyn He is also getting topical bacitracin 3 times a day No signs of abscess or osteomyelitis White count improved Afebrile Hypokalemia: Repleted Tacrolimus level is pending History of lung transplant currently patient is on prednisone and tacrolimus twice a day regimen No signs of addisonian crisis Patient hemodynamically stable Because of chronic steroid use is wound healing will be delayed Wound care: SELINA Melissa once a day dressing change after application of bacitracin Pus is draining freely, no localized collection Erythema has been marked Full code Regular diet DVT prophylaxis Lovenox Patient might be able to go home over the weekend Attestations Medical Necessity Statement*: Patient might be able to go home over the weekend Time Spent in Patient Care: 40 Coding Level of Care Code Acute Drain Technician for Tia Fwd Diagnoses Hx of lung transplant Z94.2 Nausea with vomiting R11.2 Vomiting type: unspecified Cellulitis of left leg L03.116
[2022-06-24] MEDS: bacitracin ointment 28 gm 1 APPLIC TOPICAL ×3 (09:34→21:14)
--- NOTE | 2022-06-24 10:39 | PC.CHAP ---
Pastoral Care Encounter/Spiritual Assessment Type of Contact [] Declined mask former visit [] Patient/Family/Request visit [] Outpatient visit [] Follow-up visit [] Physician referral [] Code/Alert [x] Routine visit [] Staff referral [] Actively dying [] Patient sleeping [] Family support [] [] Out of room [] Palliative care [] [] Receiving care in room [] Pre-surgical visit [] Trauma [] Long length of stay [] ICU visit [] Other: Relational/Emotional Strength []x Patient feels connected with others/family/visitors/staff [] Distress [] Loneliness/isolation [] Abandonment Spirituality of Patient [x] Person of Shelley [x] Attends Uatsdin of their Shelley [x] Believes in Prayer [] Reads Bible or Islam materials [] There are Spiritual issues to be addressed Juvenile Officer Interventions [x] Prayer [x] Active listening []x Non-anxious presence x[] Spiritual/emotional support [] Crisis/trauma care [] Spiritual counseling [] Bereavement support [] Provided bereavement packet [] Provided Bible/devotional materials [] Provided toy/stuffed animal, coloring book to patient or family member [] Provided Communion [] Anointing/[place] [] Salvation [x] Completed spiritual assessment [] Other: Impact on Illness or Injury [] Angry [] Fearful [] Anxious [] Often cries [] Exhaustion [] Unable to work [] Unable to attend yarsanism [] Unable to walk/stand [] Unable to read [] Unable to drive [] Unable to eat/drink [] Unable to sleep [] Unable to be with family [] Patient intubated [] Other: Summary Time spent with patient 10 min
[2022-06-24 11:23] VITALS: BP 125/58; PULSE 85; RESP 18; TEMP 36.8; O2SAT 98
[2022-06-24 15:46] VITALS: BP 122/54; PULSE 69; RESP 16; TEMP 36.8; O2SAT 96
[2022-06-24] MEDS: vancomycin 1,000 MG in sodium chloride 0.9% 250 ML 250 MG IV (15:47)
[2022-06-24] MEDS: tacrolimus 0.5 mg Capsule 3 MG PO (17:29)
[2022-06-24 19:10] VITALS: BP 166/72; PULSE 77; RESP 18; TEMP 36.8; O2SAT 98
[2022-06-24] MEDS: trazodone 50 mg Tablet 25 MG PO (21:10)
[2022-06-25] VITALS (7 sets, daily range): BP systolic 139–155; BP diastolic 77–93; PULSE 68–95; RESP 16–20; TEMP 36.6–36.8; O2SAT 96–99
[2022-06-25] MEDS: piperacillin-tazobactam 3.375 GM in sodium chloride 0.9% (plus) 50 ML IV ×3 (01:24→18:07)
[2022-06-25 04:44] LABS: Basophils # 0.1 10^3/uL (0.0-0.1); Basophils % 0.9 %; Eosinophils # 0.1 10^3/uL (0.0-0.8); Hematocrit 38.1 % (42.0-52.0); Hemoglobin 12.6 g/dL (11.7-16.6); Lymphocytes # 1.1 10^3/uL (0.8-4.8); Lymphocytes % 16.1 %; Mean Corpuscular HGB Conc 33.1 g/dL (30.0-36.0); Mean Corpuscular Hemoglobin 34.6 pg (28.0-34.0); Mean Corpuscular Volume 104.7 fl (80-94); Mean Platelet Volume 10.1 fL (7.4-10.4); Monocytes % 15.3 %; Neutrophils # 4.26 10^3/uL (1.8-7.7); Neutrophils % 64.6 %; Nucleated Red Blood Cells % 0 %; Platelet Count 224 10^3/cmm (130-400); Red Blood Count 3.64 10^6/uL (4.1-5.3); Red Cell Distribution Width 14.3 % (12.1-15.1); White Blood Count 6.6 10^3/uL (4.0-10.0)
[2022-06-25 05:04] LABS: Anion Gap 16.1 (5-19); Blood Urea Nitrogen 11 mg/dL (8-23); C Reactive Protein 4.6 mg/L (0.0-4.9); Carbon Dioxide 24 mmol/L (22-29); Chloride 106 mmol/L (98-107); Glomerular Filtration Rate 96.1 mL/min (90-130); Glucose 98 mg/dL (65-115); Osmolality Calculated 295 mOsm/kg (285-295); Potassium 3.1 mmol/L (3.5-5.1); Sodium 143 mmol/L (136-145)
[2022-06-25] MEDS: enoxaparin 40 mg/0.4 mL Syringe SUBCUT (05:25)
[2022-06-25] MEDS: citalopram 20 mg Tablet 10 MG PO (09:02)
[2022-06-25] MEDS: predniSONE 5 mg Tablet PO (09:02)
[2022-06-25] MEDS: metoprolol tartrate 25 mg Tablet PO ×2 (09:02→20:03)
[2022-06-25] MEDS: pantoprazole DR 40 mg Tablet PO (09:02)
[2022-06-25] MEDS: amlodipine 10 mg Tablet PO (09:02)
[2022-06-25] MEDS: tacrolimus 0.5 mg Capsule 4 MG PO (09:02)
[2022-06-25] MEDS: atorvastatin 40 mg Tablet PO (09:03)
[2022-06-25] MEDS: vancomycin 1,000 MG in sodium chloride 0.9% 250 ML 250 MG IV (09:03)
[2022-06-25] MEDS: bacitracin ointment 28 gm 1 APPLIC TOPICAL ×3 (09:03→20:02)
--- NOTE | 2022-06-25 14:09 | PM.PN ---
Subjective Subjective: Patient was seen and examined this morning, left lower extremity wound is slowly improving, redness appears to be decreasing, has been afebrile, his other vitals and labs have been reviewed. Medications: Medication Review Details: Generic Name Dose Route Start Last Admin Trade Name Freq PRN Reason Stop Dose Admin Amlodipine Besylat e 10 mg 06/23/22 07:45 06/25/22 09:02 Amlodipine 10 Mg Tablet PO 10 mg DAILY HERNAN Administration Atorvastatin Calci um 40 mg 06/23/22 09:00 06/25/22 09:03 Atorvastatin 40 Mg Tablet PO 40 mg DAILY HERNAN Administration Bacitracin 1 applic 06/24/22 09:00 06/25/22 09:03 Bacitracin Ointm ent 28 Gm TOPICAL 1 applic TID HERNAN Administration Protocol Citalopram Hydrobr omide 10 mg 06/23/22 09:00 06/25/22 09:02 Citalopram 20 Mg Tablet PO 10 mg DAILY HERNAN Administration Enoxaparin Sodium 40 mg 06/23/22 04:30 06/25/22 05:25 Enoxaparin 40 Mg /0.4 Ml Syringe SUBCUT 40 mg Q24H HERNAN Administration Vancomycin HCl 1,0 00 mg/ 250 mls @ 250 mls /hr 06/23/22 22:00 06/25/22 10:06 Sodium Chloride IV Infused Q18H HERNAN Infusion Protocol Piperacillin Sod/T azobactam 50 mls @ 12.5 mls /hr 06/23/22 09:00 06/25/22 13:29 Sod 3.375 gm/ So dium Chloride IV Infused Q8H HERNAN Infusion Protocol Metoprolol Tartrat e 25 mg 06/23/22 09:00 06/25/22 09:02 Metoprolol Tartr ate 25 Mg Tablet PO 25 mg BID@0900,2100 HERNAN Administration Ondansetron HCl 4 mg 06/23/22 04:17 06/23/22 06:53 Ondansetron 2 Mg /Ml Sdv 2 Ml IVP 4 mg Q8H PRN Administration vomiting, or N/V if npo Pantoprazole Sodiu m 40 mg 06/23/22 09:00 06/25/22 09:[address] 40 Mg Tablet PO 40 mg DAILY HERNAN Administration Prednisone 5 mg 06/23/22 09:00 06/25/22 09:02 Prednisone 5 Mg Tablet PO 5 mg DAILY HERNAN Administration Tacrolimus 4 mg 06/23/22 09:00 06/25/22 09:02 Tacrolimus 0.5 M g Capsule PO 4 mg DAILY HERNAN Administration Tacrolimus 3 mg 06/23/22 18:00 06/24/22 17:29 Tacrolimus 0.5 M g Capsule PO 3 mg QPM HERNAN Administration Trazodone HCl 25 mg 06/24/22 21:00 06/24/22 21:10 Trazodone 50 Mg Tablet PO 25 mg BEDTIME HERNAN Administration Vitals/I&O/Wt Last Vital Signs Temp 98.2 F 06/25/22 11:33 Pulse 87 06/25/22 11:33 Resp 16 06/25/22 11:33 BP 145/89 06/25/22 11:33 Pulse Ox 97 06/25/22 11:33 O2 Del Method 06/25/22 11:33 06/24/22 06/25/22 06/25/22 22:59 06:59 14:59 Intake Total 660 / 2485 530 / 3015 780 / 780 Output Total 675 / 1675 775 / 2450 Balance -15 / 810 -245 / 565 780 / 780 Physical Exam Const: COMMON NORMALS: patient oriented x3 Resp: COMMON NORMALS: clear to auscultation bilaterally AUSCULTATION: clear to auscultation bilaterally Cardio: COMMON NORMALS: regular rate, regular rhythm, S1 normal heart sound present, S2 normal heart sound present, No gallops present (Cardio), No murmurs present (Cardio), No rub (Cardio) and Peripheral pulses 2+ throughout RATE: regular rate RHYTHM: regular rhythm HEART SOUNDS: S1 normal heart sound present and S2 normal heart sound present PERIPHERAL PULSES: Peripheral pulses 2+ throughout GI: COMMON NORMALS: Normal to inspection, nondistended, normoactive bowel sounds present, Soft to palpation, non-tender, No hepatosplenomegaly present and no masses AUSCULTATION: Yes normoactive bowel sounds PALPATION: Yes Soft to palpation and Yes No hepatosplenomegaly present RECTAL EXAM: Yes deferred Extremity: COMMON NORMALS: no clubbing, cyanosis or edema and no pedal edema NARRATIVE EXTREMITY EXAM: lt lower extremity wound, mild swelling , minimal purulent discharge Neuro: COMMON NORMALS: patient oriented x3 Data : 06/25/22 03:19 06/25/22 03:19 A&P Assessment and plan (1) Hx of lung transplant: (2) Nausea with vomiting: Qualifiers: Vomiting type: unspecified Qualified Code(s): R11.2 - Nausea with vomiting, unspecified (3) Cellulitis of left leg: Plan Sepsis related to purulent cellulitis continue IV antibiotics, I will discontinue IV fluids continue vancomycin and Zosyn He is also getting topical bacitracin 3 times a day No signs of abscess or osteomyelitis White count improved Afebrile Hypokalemia: Repleted Tacrolimus level is pending History of lung transplant currently patient is on prednisone and tacrolimus twice a day regimen No signs of addisonian crisis Patient hemodynamically stable Because of chronic steroid use is wound healing will be delayed Wound care: SELINA Melissa once a day dressing change after application of bacitracin Pus is draining freely, no localized collection Erythema has been marked Full code Regular diet DVT prophylaxis Lovenox Patient might be able to go home over the weekend Attestations Medical Necessity Statement*: Patient is in hospital for IV antibiotics. Time Spent in Patient Care: Greater than 35 minutes (>than 50% of time spent in counselling and/or direct pt care on unit). 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
[2022-06-25] MEDS: tacrolimus 0.5 mg Capsule 3 MG PO (18:07)
[2022-06-25] MEDS: trazodone 50 mg Tablet 25 MG PO (20:03)
[2022-06-26] MEDS: piperacillin-tazobactam 3.375 GM in sodium chloride 0.9% (plus) 50 ML IV ×2 (00:22→09:28)
[2022-06-26 04:32] VITALS: BP 141/71; PULSE 73; RESP 17; TEMP 36.7; O2SAT 98
[2022-06-26] MEDS: enoxaparin 40 mg/0.4 mL Syringe SUBCUT (05:32)
[2022-06-26] MEDS: vancomycin 1,000 MG in sodium chloride 0.9% 250 ML 250 MG IV (05:32)
[2022-06-26 07:10] VITALS: BP 143/75; PULSE 65; RESP 16; TEMP 36.7; O2SAT 95
[2022-06-26] MEDS: tacrolimus 0.5 mg Capsule 4 MG PO (09:16)
[2022-06-26] MEDS: pantoprazole DR 40 mg Tablet PO (09:17)
[2022-06-26] MEDS: amlodipine 10 mg Tablet PO (09:17)
[2022-06-26] MEDS: predniSONE 5 mg Tablet PO (09:17)
[2022-06-26] MEDS: citalopram 20 mg Tablet 10 MG PO (09:17)
[2022-06-26] MEDS: atorvastatin 40 mg Tablet PO (09:17)
[2022-06-26] MEDS: bacitracin ointment 28 gm 1 APPLIC TOPICAL (09:19)
[2022-06-26] MEDS: metoprolol tartrate 25 mg Tablet PO (09:19)
[2022-06-26 11:12] VITALS: BP 137/72; PULSE 69; RESP 16; TEMP 36.7; O2SAT 96
--- NOTE | 2022-06-26 11:13 | P.DS_ITS ---
Discharge Providers Date of Admission: 06/23/22 02:10 Date of Discharge: June 26, 2022 Attending Provider at Admission: Tika Peter MD Attending Provider at Discharge: Marlon Basilio MD Primary Care Provider: Sade Salas APN Diagnoses at Discharge Discharge Diagnosis (1) Hx of lung transplant: Status: Acute Permanent problem details: bilateral (2) Nausea with vomiting: Status: Acute Qualifiers: Vomiting type: unspecified Qualified Code(s): R11.2 - Nausea with vomiting, unspecified (3) Cellulitis of left leg: Status: Acute Reason for Visit Reason for Visit: N\V Hospital Course Hospital Course 67 year old male with past medical history of bilateral lung transplant currently on tacrolimus azathioprine as well as prednisone was admitted for the management of left lower extremity cellulitis patient developed cellulitis, after hitting the iqbal against the staircase very going up the stairs at home. CT lower leg LT wo con: Mild soft tissue edema lower leg anteriorly overlying the distal tibia. Recommend correlation for cellulitis.No evidence of drainable abscess or fluid collection. No evidence of osteomyelitis. Blood culture was negative, Wound culture was growing coagulase-negative staph, patient was kept on Vanco and Zosyn while in hospital, he was hemodynamically stable, afebrile, no concerns for sepsis, lower extremity cellulitis was improving, he was discharged on Doxy as well as ciprofloxacin for another 2 weeks, he has been asked to follow-up with his primary care physician in a week time, to monitor the lower extremity cellulitis.In the ER he was retching and gagging and had some abdominal discomfort for which CT of the abdomen and pelvis was performed, which failed to show any acute abdominal or pelvic pathology. Overall patient has responded well to above medical management and is being discharged in stable condition to home. ? Physical Exam Const: COMMON NORMALS: patient oriented x3 Resp: COMMON NORMALS: clear to auscultation bilaterally AUSCULTATION: clear to auscultation bilaterally Cardio: COMMON NORMALS: regular rate, regular rhythm, S1 normal heart sound present, S2 normal heart sound present, No gallops present (Cardio), No murmurs present (Cardio), No rub (Cardio) and Peripheral pulses 2+ throughout RATE: regular rate RHYTHM: regular rhythm HEART SOUNDS: S1 normal heart sound present and S2 normal heart sound present PERIPHERAL PULSES: Peripheral pulses 2+ throughout GI: COMMON NORMALS: Normal to inspection, nondistended, normoactive bowel sounds present, Soft to palpation, non-tender, No hepatosplenomegaly present and no masses AUSCULTATION: Yes normoactive bowel sounds PALPATION: Yes Soft to palpation and Yes No hepatosplenomegaly present RECTAL EXAM: Yes deferred Extremity: COMMON NORMALS: no clubbing, cyanosis or edema and no pedal edema NARRATIVE EXTREMITY EXAM: lt lower extremity wound, mild swelling , minimal purulent discharge Neuro: COMMON NORMALS: patient oriented x3 Discharge Data Studies Completed and Pending Completed Studies During Hospitalization Category Date Time Status CT abdomen pelvis w con* [id number] Stat Cat Scan 06/23/22 00:[address] lower leg LT wo con* [id number] Routine Cat Scan 06/23/22 06:45 Completed XR chest 1V portable [id number] Stat Exams 06/23/22 00:30 Completed Pending at discharge Category Date Time Status Blood Culture Stat Lab 06/23/22 01:44 Results FK [id number] (Tacrolimus) Stat Lab 06/23/22 06:44 Received Wound Culture Routine Lab 06/24/22 09:35 Results Radiology Impressions Chest X-Ray 06/23/22 00:30 IMPRESSION: No acute findings. Abdomen/Pelvis CT 06/23/22 00:34 IMPRESSION: 1. Negative for acute abdominopelvic pathology. 2. Incidental small left adrenal gland nodule. 3. Non-emergent adrenal CT is recommended. (Reference: Joey) COMMENTS: Consistent with the [employer]'s Incidental Findings Committee white paper (J Am Mayra Radiol 2018): Any incidental renal lesion less than 1 cm or classified as too small to characterize, or any incidental cystic renal lesion characterized as simple-appearing, is likely benign. No follow-up imaging is recommended for these lesions per consensus recommendations based on imaging criteria. REFERENCES: Joey NOBLE, et al. Management of Incidental Adrenal Masses: A White Paper of the ACR Incidental Findings Committee. J Am Mayra Radiol. 2017;14(8):3658-9149. Lower Extremity CT 06/23/22 06:45 IMPRESSION: 1. Mild soft tissue edema lower leg anteriorly overlying the distal tibia. Recommend correlation for cellulitis. 2. No evidence of drainable abscess or fluid collection. 3. No evidence of osteomyelitis. Laboratory Results WBC 6.6 10^3/uL (4.0-10.0) 06/25/22 03:19 RBC 3.64 10^6/uL (4.1-5.3) L 06/25/22 03:19 Hgb 12.6 g/dL (11.7-16.6) 06/25/22 03:19 Hct 38.1 % (42.0-52.0) L 06/25/22 03:19 MCV 104.7 fl (80-94) H 06/25/22 03:19 MCH 34.6 pg (28.0-34.0) H 06/25/22 03:19 MCHC 33.1 g/dL (30.0-36.0) 06/25/22 03:19 RDW 14.3 % (12.1-15.1) 06/25/22 03:19 Plt Count 224 10^3/cmm (130-400) 06/25/22 03:19 MPV 10.1 fL (7.4-10.4) 06/25/22 03:19 Neut % (Auto) 64.6 % 06/25/22 03:19 Lymph % (Auto) 16.1 % 06/25/22 03:19 [place] % (Auto) 15.3 % 06/25/22 03:19 Eos % (Auto) 2.0 % 06/25/22 03:19 Baso % (Auto) 0.9 % 06/25/22 03:19 Neut # (Auto) 4.26 10^3/uL (1.8-7.7) 06/25/22 03:19 Lymph # (Auto) 1.1 10^3/uL (0.8-4.8) 06/25/22 03:19 [place]linger # (Auto) 1.0 10^3/uL (0.2-0.9) H 06/25/22 03:19 Eos # (Auto) 0.1 10^3/uL (0.0-0.8) 06/25/22 03:19 Baso # (Auto) 0.1 10^3/uL (0.0-0.1) 06/25/22 03:19 Nucleated RBC % (auto) 0 % 06/25/22 03:19 Nucleated RBCs # 0.0 /100WBC 06/25/22 03:19 Sodium 143 mmol/L (136-145) 06/25/22 03:19 Potassium 3.1 mmol/L (3.5-5.1) L 06/25/22 03:19 Chloride 106 mmol/L (98-107) 06/25/22 03:19 Carbon Dioxide 24 mmol/L (22-29) 06/25/22 03:19 Anion Gap 16.1 (5-19) 06/25/22 03:19 BUN 11 mg/dL (8-23) 06/25/22 03:19 Creatinine 0.8 mg/dL (0.7-1.2) 06/25/22 03:19 GFR Calculation 96.1 mL/min (90-130) 06/25/22 03:19 Glucose 98 mg/dL (65-115) 06/25/22 03:19 Calculated Osmolality 295 mOsm/kg (285-295) 06/25/22 03:19 Lactic Acid 3.4 mmol/L (0.5-2.2) H 06/22/22 23:42 Lactic Acid (Sepsis) 1.4 mmol/L (0.5-2.2) 06/23/22 01:46 Lactate 2.2 mmol/L (0.5-2.2) 06/23/22 10:12 Calcium 9.0 mg/dL (8.5-10.5) 06/25/22 03:19 Magnesium 1.6 mg/dL (1.7-2.3) L 06/24/22 04:06 Total Bilirubin 0.5 mg/dL (0.15-1.2) 06/24/22 04:06 AST 57 U/L (0-40) H 06/24/22 04:06 ALT 18 U/L (0-41) 06/24/22 04:06 Alkaline Phosphatase 75 U/L (40-130) 06/24/22 04:06 Troponin T Baseline 19 ng/L (0-15) H 06/22/22 23:42 Troponin T 120 Minute 17.05 ng/L (0-15) H 06/23/22 01:46 Delta Troponin T -1.95 ABS# (0-10) L 06/23/22 01:46 Troponin T Hi Sens 6Hr 18.07 ng/L (0-15) H 06/23/22 05:17 Troponin T Hi Sens 6Hr Delta -0.93 ng/L (0-12) L 06/23/22 05:17 C-Reactive Protein 4.6 mg/L (0.0-4.9) 06/25/22 03:19 Total Protein 6.3 g/dL (6.6-8.7) L 06/24/22 04:06 Albumin 3.8 g/dL (3.5-5.2) 06/24/22 04:06 Globulin 2.5 g/dL (1.3-4.6) 06/24/22 04:06 Triglycerides 117 mg/dL (0-150) 06/23/22 01:46 Lipase 162 U/L (13-60) H 06/22/22 23:42 Urine Color Violetta (Yellow) 06/23/22 00:00 Urine Appearance Sl hazy (CLEAR) A 06/23/22 00:00 Urine pH 5 (5-7) 06/23/22 00:00 Ur Specific [place] 1.020 (1.005-1.030) 06/23/22 00:00 Urine Protein 1+ (Negative) H 06/23/22 00:00 Urine Glucose (UA) Trace (Normal) H 06/23/22 00:00 Urine Ketones 2+ (Negative) H 06/23/22 00:00 Urine Blood Trace (Negative) H 06/23/22 00:00 Urine Nitrate Negative (Negative) 06/23/22 00:00 Urine Bilirubin 1+ (Negative) H 06/23/22 00:00 Urine Urobilinogen Norm mg/dL (Negative) 06/23/22 00:00 Ur Leukocyte Esterase Negative (Negative) 06/23/22 00:00 Urine RBC 0-4 /hpf (0-2) H 06/23/22 00:00 Urine WBC 0-4 /hpf (0-5) H 06/23/22 00:00 Ur Squamous Epith Cells 0-4 /hpf (0-5) H 06/23/22 00:00 Amorphous Sediment 1+ /hpf 06/23/22 00:00 Urine Bacteria Trace /hpf (NONE) 06/23/22 00:00 Hyaline Casts 5-10 /lpf H 06/23/22 00:00 Fine Granular Casts 0-4 /lpf H 06/23/22 00:00 Urine Mucus 2+ /hpf 06/23/22 00:00 Vancomycin Trough 9.0 ug/mL (10-15) L 06/26/22 02:54 Vitals Last Vital Signs Temp 98.1 F 06/26/22 11:12 Pulse 69 06/26/22 11:12 Resp 16 06/26/22 11:12 BP 137/72 06/26/22 11:12 Pulse Ox 96 06/26/22 11:12 O2 Del Method 06/26/22 11:12 Discharge Plan Discharge Patient Disposition: Home Condition: Stable Prescriptions: New bacitracin 500 unit/gram Ointment 1 applic topical TID 14 Days Qty: 28 0RF doxycycline monohydrate 100 mg capsule 100 mg PO BID 14 Days Qty: 28 0RF ciprofloxacin HCl 500 mg tablet 500 mg PO BID 14 Days Qty: 28 0RF Continued azathioprine 50 mg tablet 150 mg PO DAILY@10 acyclovir 200 mg capsule 200 mg PO BID atorvastatin 40 mg tablet 40 mg PO DAILY trazodone 50 mg tablet 50 - 100 mg PO BEDTIME prednisone 5 mg tablet 5 mg PO DAILY@10 omeprazole 40 mg capsule,delayed release(DR/EC) 40 mg PO DAILY@10 citalopram 20 mg tablet 20 mg PO DAILY@10 calcium carbonate 500 mg calcium (1,250 mg) Tablet 500 mg PO DAILY tacrolimus 1 mg capsule See Rx Instructions .ROUTE .COMPLEX Rx Instructions: 4mg (4 caps)po qam and 3mg (3 caps) po qpm multivitamin Tablet 1 tab PO DAILY Discontinued cephalexin 500 mg capsule 500 mg PO TID Rx Instructions: rx filled 06/22/22 10d/s mupirocin 2 % ointment 1 applic TOPICAL BID doxycycline hyclate 100 mg tablet 100 mg PO BID Rx Instructions: for 10 days (rx 06/20/22) Discharge Orders: Discharge Order (Routine); Ordered 06/26/22 Ordered By: Marlon Basilio Referrals: Sade Salas APN [Primary Care Provider] - 1 week (Please call Monday to schedule a follow up appointment.) Patient Instructions: Cellulitis, Ciprofloxacin (By mouth), Doxycycline (By mouth), Bacitracin (On the skin), Abdominal Pain (ED), Opioid Safety, Pain Management Discharge Attestations Time Spent in Discharge Care*: less than 30 min Quality Metrics Clinical Quality Measures [ No reported AMI, CVA or VTE this stay] Coding Level of Care Code Acute Chg FW DC note Diagnoses Hx of lung transplant Z94.2 Nausea with vomiting R11.2 Vomiting type: unspecified Cellulitis of left leg L03.116
[2022-06-26 13:20] VITALS: BP 137/72; PULSE 69; RESP 16; TEMP 36.7; O2SAT 96
--- NOTE | 2022-06-26 13:21 | PC.NURSE ---
patient verbalized understanding of discharge instructions, home medications, and follow up. patient was walked to the ER entrance to his vehicle.
== END 2022-06-26 13:00 | disposition home or self-care (01) | DRG 603 ==
LOC: ER 06-23 01:46 → MEDSURG 06-23 02:58
PROVIDERS: Internal Medicine; Admitting Provider Student in an Organized Health Care Education/Training Program; Emergency Provider Nurse Practitioner Family; PCP Nurse Practitioner Family; Visit Provider Internal Medicine
DX: L03.116 Cellulitis of left lower limb (principal); Z94.2 Lung transplant status; D84.821 Immunodeficiency due to drugs; Z79.621 Long term (current) use of calcineurin inhibitor; I48.91 Unspecified atrial fibrillation; F41.9 Anxiety disorder, unspecified; N18.2 Chronic kidney disease, stage 2 (mild); I12.9 Hypertensive chronic kidney disease with stage 1 through stage 4 chronic kidney disease, or unspecified chronic kidney disease; D63.1 Anemia in chronic kidney disease; F32.A Depression, unspecified; E78.5 Hyperlipidemia, unspecified; G47.33 Obstructive sleep apnea (adult) (pediatric); Z87.891 Personal history of nicotine dependence; E87.6 Hypokalemia; Z79.891 Long term (current) use of opiate analgesic
CPT/HCPCS: 36415; 71045; 73700; 74177; 80048; 80053; 80197; 80202; 81001; 83605; 83690; 83735; 84478; 84484; 85025; 86140; 87040; 87070; 87077; 87186; 93005; 96365; 96366; 96367; 96372; 96375; 99285; J1170; J1630; J1650; J2405; J2543; J3370; J3480; J7030; J7050; J7507; J7512; Q9967

== ENCOUNTER → 2022-07-07 13:15 | Outpatient (BNVA) | payer MEDICARE, BC, SELFPAY | PROVIDERS: PCP Nurse Practitioner Family; Visit Provider Nurse Practitioner Family | DX: I96 Gangrene, not elsewhere classified (principal); S81.802A Unspecified open wound, left lower leg, initial encounter; X58.XXXA Exposure to other specified factors, initial encounter | CPT/HCPCS: 11042; 99213 ==

== ENCOUNTER → 2022-07-13 14:14 | Outpatient (BNVA) | payer MEDICARE, BC, SELFPAY | PROVIDERS: PCP Nurse Practitioner Family; Visit Provider Nurse Practitioner Family | DX: I96 Gangrene, not elsewhere classified (principal); L97.822 Non-pressure chronic ulcer of other part of left lower leg with fat layer exposed | CPT/HCPCS: 11042; A6212 ==

== ENCOUNTER → 2022-07-20 14:32 | Outpatient (BNVA) | payer MEDICARE, BC, SELFPAY | PROVIDERS: PCP Nurse Practitioner Family; Visit Provider Nurse Practitioner Family | DX: I96 Gangrene, not elsewhere classified (principal); L97.822 Non-pressure chronic ulcer of other part of left lower leg with fat layer exposed | CPT/HCPCS: 11042; A6021; A6212 ==

== ENCOUNTER → 2022-07-27 10:56 | Outpatient (BNVA) | payer MEDICARE, BC, SELFPAY | PROVIDERS: PCP Nurse Practitioner Family; Visit Provider Thoracic Surgery (Cardiothoracic Vascular Surgery) | DX: L97.822 Non-pressure chronic ulcer of other part of left lower leg with fat layer exposed (principal) | CPT/HCPCS: 11042; A6021; A6219 ==

== ENCOUNTER → 2022-08-03 09:37 | Outpatient (BNVA) | payer MEDICARE, BC, SELFPAY | PROVIDERS: PCP Nurse Practitioner Family; Visit Provider Thoracic Surgery (Cardiothoracic Vascular Surgery) | DX: L97.822 Non-pressure chronic ulcer of other part of left lower leg with fat layer exposed (principal) | CPT/HCPCS: 11042; A6021 ==

== ENCOUNTER 2022-12-08 13:07 | Outpatient (CLI) | payer MEDICARE, BC, SELFPAY ==
--- NOTE | 2022-12-08 13:29 | USCV_ITS ---
Ole Harry Age: 67 Gender: M : 1955 Exam Date: 12/08/2022 13:56 Ordering Phys: Sade Salas APN Technologist: YAHAIRA Exam Location: [facility] [place] Indication: Leg Pain and Swelling HISTORY: Lower extremity swelling. Patient has history of. DVT. PROCEDURES: Venous duplex imaging was performed in bilateral lower extremities. The following venous structures were evaluated: common femoral vein, profunda vein, proximal portion of the greater saphenous vein, superficial femoral vein, and the popliteal vein. In addition, the posterior tibial and peroneal trunk were evaluated. Serial compression, augmentation maneuvers, and spectral Doppler flow evaluation were performed. 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 All other veins evaluated compressible and patent. CONCLUSIONS Age indeterminate left DVT, occlusive. No right DVT. Dr. Carlene Santana DO (Electronically Signed) Final Date: 08 December 2022 15:49 S
== END 2022-12-08 13:08 | disposition home or self-care (01) ==
LOC: RAD 13:21
PROVIDERS: PCP Nurse Practitioner Family; Visit Provider Nurse Practitioner Family
DX: M79.89 Other specified soft tissue disorders (principal); I82.402 Acute embolism and thrombosis of unspecified deep veins of left lower extremity
CPT/HCPCS: 93970

== ENCOUNTER 2023-06-28 08:30 | Outpatient (CLI) | payer MEDICARE, BC, SELFPAY ==
[2023-06-28 09:24] LABS: Alanine Aminotransferase 16 U/L (0-41); Albumin Level 4.2 g/dL (3.5-5.2); Alkaline Phosphatase 88 U/L (40-130); Aspartate Amino Transferase 24 U/L (0-40); Blood Urea Nitrogen 8 mg/dL (8-23); Carbon Dioxide 25 mmol/L (22-29); Chloride 105 mmol/L (98-107); Globulin 2.6 g/dL (1.3-4.6); Glomerular Filtration Rate 83.7 mL/min (90-130); Glucose 106 mg/dL (65-115); Osmolality Calculated 291 mOsm/kg (285-295); Sodium 141 mmol/L (136-145); Total Bilirubin 0.4 mg/dL (0.15-1.2); Total Protein 6.8 g/dL (6.6-8.7)
== END 2023-06-28 08:31 | disposition home or self-care (01) ==
LOC: LAB 08:39
PROVIDERS: PCP Nurse Practitioner Family; Visit Provider Internal Medicine Pulmonary Disease
DX: Z48.24 Encounter for aftercare following lung transplant (principal)
CPT/HCPCS: 36415; 80053; 80197

== ENCOUNTER 2023-07-29 20:53 | Emergency (ER) | payer MEDICARE, BC, SELFPAY ==
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
[2023-07-29 21:01] VITALS: BP 169/106; PULSE 95; RESP 16; TEMP 36.6; O2SAT 96
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
[2023-07-29 21:34] LABS: Alcohol Level 219 mg/dL (0-10)
[2023-07-29] MEDS: neomycin-poly-bacitracin oint 28 gm 1 APPLIC TOPICAL (21:40)
[2023-07-29] MEDS: tetanus-dipt-pertussis 0.5 mL SDV IM (21:40)
[2023-07-29] MEDS: cephALEXin 500 mg Capsule PO (21:40)
[2023-07-29] MEDS: sodium chloride 0.9% 1,000 ML 999 ML IV (21:42)
[2023-07-29] MEDS: lidocaine 2% INJ 20 mL MDV (mL) 10 ML INJECTION (22:02)
[2023-07-29 23:31] VITALS: BP 161/128; PULSE 87; RESP 16; O2SAT 95
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
== END 2023-07-30 00:01 | disposition home or self-care (01) ==
PROVIDERS: Emergency Provider Internal Medicine; PCP Nurse Practitioner Family
DX: S81.032A Puncture wound without foreign body, left knee, initial encounter (principal); W32.0XXA Accidental handgun discharge, initial encounter; Z23 Encounter for immunization
CPT/HCPCS: 12002; 73562; 80307; 90471; 90715; 96360; 99284; J7030

== ENCOUNTER 2024-10-16 23:33 | Emergency (ER) | payer MEDICARE, BC, SELFPAY ==
[2024-10-16 23:41] VITALS: BP 149/66; PULSE 98; RESP 16; TEMP 36.7; O2SAT 98
--- NOTE | 2024-10-17 00:05 | XRR_ITS ---
PROCEDURE INFORMATION: Exam: XR Left Foot Exam date and time: 10/17/2024 12:48 AM Age: 69 years old Clinical indication: Pain; Toes; Left; Additional info: Toe injury TECHNIQUE: Imaging protocol: Radiologic exam of the left foot. Views: 3 or more views. COMPARISON: CT lower leg LT wo con* [id number] 06/23/2022 8:20 AM FINDINGS: Bones/joints: Periosteal reaction is seen along the diaphysis of the 5th proximal phalanx. No acute or displaced fracture is seen. Soft tissues: Fifth digit soft tissue swelling. XR/XR foot LT min 3V* [id number] IMPRESSION: Possible healing subacute nondisplaced 5th proximal phalangeal fracture.
--- NOTE | 2024-10-17 03:46 | W.ED.EXTPRO ---
HPI - Extremity Problem General: Chief complaint: Extremity Injury, Lower Stated complaint: L foot little toe possible Broken Time Seen by Provider: 10/17/24 02:50 History of Present Illness: 69-year-old man who presents emergency room with worsening left fifth toe pain and swelling and redness in his foot. He was seen a couple of days ago in a different emergency room and diagnosed with a fracture. Placed on antibiotics. He says the swelling and pain to become much worse. He does not have any pain medications. He says he was placed on an antibiotic. However this was today and he has not even taken the antibiotic yet. He felt that he needed better care so he came to the emergency room. Related Data Home Medications ?Medication ?Instructions ?Recorded ?Confirmed acyclovir 200 mg capsule 200 mg PO BID 12/05/19 06/23/22 atorvastatin 40 mg tablet 40 mg PO DAILY 12/05/19 06/23/22 azathioprine 50 mg tablet 150 mg PO DAILY@12/05/19 06/23/22 trazodone 50 mg tablet 50 - 100 mg PO BEDTIME 12/05/19 06/23/22 calcium carbonate 500 mg PO DAILY 06/23/22 06/23/22 citalopram 20 mg tablet 20 mg PO DAILY@06/23/22 06/23/22 multivitamin 1 tab PO DAILY 06/23/22 06/23/22 omeprazole 40 mg capsule,delayed 40 mg PO DAILY@06/23/22 06/23/22 release prednisone 5 mg tablet 5 mg PO DAILY@06/23/22 06/23/22 tacrolimus 1 mg capsule, See Rx Instructions .Route .COMPLEX 06/23/22 06/23/22 immediate-release Previous Rx's ?Medication ?Instructions ?Recorded hydrocodone 5 mg-acetaminophen 325 1 tab PO Q8H PRN pain #14 tabs 10/17/24 mg tablet polyethylene glycol 3350 17 17 g PO DAILY #510 grams 10/17/24 gram/dose oral powder (Miralax) Allergies Allergy/AdvReac Type Severity Reaction Status Date / Time morphine Allergy RASH Verified 10/16/24 23:49 Review of Systems Narrative: Constitutional symptoms: Negative except as documented in HPI. Skin symptoms: Negative except as documented in HPI. Eye symptoms: Negative except as documented in HPI. ENMT symptoms: Negative except as documented in HPI. Respiratory symptoms: Negative except as documented in HPI. Cardiovascular symptoms: Negative except as documented in HPI. Gastrointestinal symptoms: Negative except as documented in HPI. Genitourinary symptoms: Negative except as documented in HPI. Musculoskeletal symptoms: Negative except as documented in HPI. Neurologic symptoms: Negative except as documented in HPI. Psychiatric symptoms: Negative except as documented in HPI. Endocrine symptoms: Negative except as documented in HPI. PFSH ED PFSH: Medical History (Updated 10/17/24 @ 04:35 by Meera Verdugo MD) Anxiety CKD (chronic kidney disease), stage II COPD (chronic obstructive pulmonary disease) JOZEF (obstructive sleep apnea) Hypertension Afib Hyperlipidemia Osteopenia Anemia Depression Vocal cord polyp Adrenal adenoma Macrocytosis Hx MRSA infection Hx of cytomegalovirus infection Cellulitis of left leg Abdominal pain Nausea with vomiting Surgical History (Updated 06/27/22 @ 00:00 by REBECCA Smith) Hx of hernia repair (~2016) Hx of lung transplant (~05/2010) bilateral Hx of bilateral cataract extraction History of vocal cord polypectomy (~08/2015) Hx of colonoscopy (~2016) History of esophagogastroduodenoscopy (EGD) (~2016) Lung transplant status Family History Father Lung disease COPD Social History Smoking and tobacco/nicotine status: former use of tobacco/nicotine Quit status (tobacco/nicotine): has quit using Former quit date comment: smoked 1.5 PPD x 30 yrs Second hand smoke exposure: No Alcohol intake: former Substance/Drug Use: never Lives independently: Yes Marital status: Current occupational status: retired Current gender identity: Male Physical Exam Narrative: EXAM NARRATIVE: General: Alert, no acute distress. Skin: warm and dry Head: Normocephalic Neck: Trachea midline Eye: Extraocular movements are intact. Ears, nose, mouth and throat: Oral mucosa moist Respiratory: Respirations are non-labored Musculoskeletal: Normal ROM. Fairly significant redness warmth and swelling of all 5 digits and the dorsum of the foot. Neurological: Alert and oriented, No focal neurological deficit observed. Psychiatric: Cooperative, appropriate mood & affect. Course Vital Signs: Vital signs: Vital Signs Temperature 98.1 F 10/16/24 23:41 Pulse Rate 86 10/17/24 04:05 Respiratory Rate 15 10/17/24 04:05 Blood Pressure 115/77 10/17/24 04:05 Pulse Oximetry 92 10/17/24 04:05 Oxygen Delivery Me thod Room Air 10/16/24 23:41 MDM - Extremity (Nontraumatic) Medical Decision Making X-ray of the left foot shows 1/5 digit fracture may be subacute. This was reviewed and interpreted by myself the emergency room physician. I also reviewed the radiology report. Lab Review: Laboratory results were reviewed and interpreted by myself the emergency room physician. Mild leukocytosis white count 11,000. ESR is mildly elevated at 13. CRP is very mildly elevated at 9. Consultation: I spoke Dr. Sanford who is on-call for podiatry. Given minimal elevation of inflammatory markers he agrees that going home on continue doxycycline therapy and an IV dose of antibiotics here is appropriate. His clinical reach out to the patient. Patient was also instructed to call his clinic if he does not hear from them. I reviewed the patient's medical record. Reexamination: Patient remained stable. No increased work of breathing. No altered mental status. No focal motor deficits. No worsening in the swelling or redness of his foot. Assessment and plan: Toe fracture Cellulitis ? IV clindamycin in the emergency room. I also wrote some pain medications for the patient - Discharged home - Discussed plan with patient. Answered any questions. - Evaluation and treatment of this problem were appropriate in the emergency setting. Lab Data 10/17/24 03:56 10/17/24 03:56 Radiology Impressions Foot X-Ray 10/17/24 00:05 IMPRESSION: Possible healing subacute nondisplaced 5th proximal phalangeal fracture. Laboratory Results WBC 11.01 10^3/uL (3.29-11.43) 10/17/24 03:56 RBC 4.57 10^6/uL (3.85-5.65) 10/17/24 03:56 Hgb 14.70 g/dL (11.27-16.99) 10/17/24 03:56 Hct 44.5 % (37-53) 10/17/24 03:56 MCV 97.4 fl (82-101) 10/17/24 03:56 MCH 32.2 pg (27-33) 10/17/24 03:56 MCHC 33.0 g/dL (30-55) 10/17/24 03:56 RDW 12.8 % (12.1-15.1) 10/17/24 03:56 Plt Count 273 10^3/cmm (157-399) 10/17/24 03:56 MPV 9.6 fL (7.4-10.4) 10/17/24 03:56 Neut % (Auto) 67.3 % 10/17/24 03:56 Lymph % (Auto) 13.1 % 10/17/24 03:56 Tate % (Auto) 11.0 % 10/17/24 03:56 Eos % (Auto) 6.1 % 10/17/24 03:56 Baso % (Auto) 1.0 % 10/17/24 03:56 Neut # (Auto) 7.42 10^3/uL (1.8-7.7) 10/17/24 03:56 Lymph # (Auto) 1.4 10^3/uL (0.8-4.8) 10/17/24 03:56 Tate # (Auto) 1.2 10^3/uL (0.2-0.9) H 10/17/24 03:56 Eos # (Auto) 0.7 10^3/uL (0.0-0.8) 10/17/24 03:56 Baso # (Auto) 0.1 10^3/uL (0.0-0.1) 10/17/24 03:56 Nucleated RBC % (auto) 0 % 10/17/24 03:56 Nucleated RBCs # 0.0 /100WBC 10/17/24 03:56 ESR 13 mm/hr (0-10) H 10/17/24 03:56 Sodium 131 mmol/L (136-145) L 10/17/24 03:56 Potassium 4.4 mmol/L (3.5-5.1) 10/17/24 03:56 Chloride 95 mmol/L (98-107) L 10/17/24 03:56 Carbon Dioxide 24 mmol/L (22-29) 10/17/24 03:56 Anion Gap 16.4 (5-19) 10/17/24 03:56 BUN 19 mg/dL (8-23) 10/17/24 03:56 Creatinine 0.9 mg/dL (0.7-1.2) 10/17/24 03:56 GFR Calculation 83.4 mL/min (90-130) L 10/17/24 03:56 Glucose 95 mg/dL (65-115) 10/17/24 03:56 Calculated Osmolality 274 mOsm/kg (285-295) L 10/17/24 03:56 Calcium 9.0 mg/dL (8.5-10.5) 10/17/24 03:56 Total Bilirubin 0.2 mg/dL (0.15-1.2) 10/17/24 03:56 AST 21 U/L (0-40) 10/17/24 03:56 ALT 13 U/L (0-41) 10/17/24 03:56 Alkaline Phosphatase 108 U/L (40-130) 10/17/24 03:56 C-Reactive Protein 9.2 mg/L (0.0-4.9) H 10/17/24 03:56 Total Protein 6.9 g/dL (6.6-8.7) 10/17/24 03:56 Albumin 3.9 g/dL (3.5-5.2) 10/17/24 03:56 Globulin 3.0 g/dL (1.3-4.6) 10/17/24 03:56 All radiology interpretation(s) finalized by discharge Discharge Plan Discharge Patient Disposition: Home Clinical Impression: Closed fracture of fifth toe of left foot, Cellulitis Condition: Stable Prescriptions: New hydrocodone-acetaminophen 5-325 mg tablet 1 tab PO Q8H PRN (Reason: pain) Qty: 14 0RF Rx Instructions: Take 1/2 to 1 tab every 8 hours as needed for pain polyethylene glycol 3350 [Miralax] 17 gram/dose powder 17 g PO DAILY Qty: 510 0RF Rx Instructions: Take 1 scoop daily while taking pain medications. No Action azathioprine 50 mg tablet 150 mg PO DAILY@10 acyclovir 200 mg capsule 200 mg PO BID atorvastatin 40 mg tablet 40 mg PO DAILY trazodone 50 mg tablet 50 - 100 mg PO BEDTIME prednisone 5 mg tablet 5 mg PO DAILY@10 omeprazole 40 mg capsule,delayed release(DR/EC) 40 mg PO DAILY@10 citalopram 20 mg tablet 20 mg PO DAILY@10 calcium carbonate 500 mg calcium (1,250 mg) Tablet 500 mg PO DAILY tacrolimus 1 mg capsule See Rx Instructions .ROUTE .COMPLEX Rx Instructions: 4mg (4 caps)po qam and 3mg (3 caps) po qpm multivitamin Tablet 1 tab PO DAILY Discharge Orders: Discharge ED (Routine); Ordered 10/17/24 Ordered By: Meera Verdugo Referrals: Sade Salas APN [Primary Care Provider] - Haseeb Sanford DPM [Physician] - 4-7 days (If you do not hear from Dr. Sanford's office please call his clinic.) Patient Instructions: Opioid Safety, Pain Management Activity Restrictions/Additional Instructions: Please continue to take the antibiotic you were prescribed at clinic. Follow with podiatry in the next few days. Thank you for choosing [facility] for your healthcare needs today. Please realize this is an emergency room and that we are providing you with a medical screening exam and this may not be complete and all inclusive of all the testing and or work up that you may need to determine your ailment or severity of your illness. You have been screened and evaluated and felt safe for discharge. Health conditions do change or evolve sometimes and as such it is important that you follow up with your Primary Doctor to be re checked, 3-5 days is a general good time frame for follow up. You are always welcome to return to the ED for re assessment if your symptoms are worsening or you have new concerns Print Language: Setswana Coding Level of Care Code ED Customer Greeter for Tia Christian
[2024-10-17 04:05] VITALS: BP 115/77; PULSE 86; RESP 15; O2SAT 92
[2024-10-17 04:05] LABS: Erythrocyte Sedimentation Rate 13 mm/hr (0-10)
[2024-10-17 04:07] LABS: Basophils # 0.1 10^3/uL (0.0-0.1); Eosinophils # 0.7 10^3/uL (0.0-0.8); Eosinophils % 6.1 %; Hematocrit 44.5 % (37-53); Lymphocytes # 1.4 10^3/uL (0.8-4.8); Lymphocytes % 13.1 %; Mean Corpuscular Hemoglobin 32.2 pg (27-33); Mean Corpuscular Volume 97.4 fl (82-101); Mean Platelet Volume 9.6 fL (7.4-10.4); Monocytes # 1.2 10^3/uL (0.2-0.9); Neutrophils # 7.42 10^3/uL (1.8-7.7); Neutrophils % 67.3 %; Nucleated Red Blood Cells % 0 %; Platelet Count 273 10^3/cmm (157-399); Red Blood Count 4.57 10^6/uL (3.85-5.65); Red Cell Distribution Width 12.8 % (12.1-15.1); White Blood Count 11.01 10^3/uL (3.29-11.43)
[2024-10-17 04:19] LABS: Alanine Aminotransferase 13 U/L (0-41); Albumin Level 3.9 g/dL (3.5-5.2); Alkaline Phosphatase 108 U/L (40-130); Aspartate Amino Transferase 21 U/L (0-40); Blood Urea Nitrogen 19 mg/dL (8-23); C Reactive Protein 9.2 mg/L (0.0-4.9); Carbon Dioxide 24 mmol/L (22-29); Chloride 95 mmol/L (98-107); Creatinine Clr Calc Pharmacy 65.7326; Glomerular Filtration Rate 83.4 mL/min (90-130); Glucose 95 mg/dL (65-115); Osmolality Calculated 274 mOsm/kg (285-295); Sodium 131 mmol/L (136-145); Total Bilirubin 0.2 mg/dL (0.15-1.2); Total Protein 6.9 g/dL (6.6-8.7)
[2024-10-17 04:24] LABS: Anion Gap 16.4 (5-19); Potassium 4.4 mmol/L (3.5-5.1)
[2024-10-17] MEDS: clindamycin 900 MG/50 ML PREMIX 100 MG IV (04:42)
[2024-10-17 04:51] VITALS: BP 141/82; PULSE 94; O2SAT 96
[2024-10-17 05:26] VITALS: BP 121/88; PULSE 92; O2SAT 93
== END 2024-10-17 05:27 | disposition home or self-care (01) ==
PROVIDERS: Emergency Provider Emergency Medicine; PCP Nurse Practitioner Family
DX: S92.515A Nondisplaced fracture of proximal phalanx of left lesser toe(s), initial encounter for closed fracture (principal); L03.032 Cellulitis of left toe; Z87.891 Personal history of nicotine dependence; J44.9 Chronic obstructive pulmonary disease, unspecified; I12.9 Hypertensive chronic kidney disease with stage 1 through stage 4 chronic kidney disease, or unspecified chronic kidney disease; N18.2 Chronic kidney disease, stage 2 (mild); E78.5 Hyperlipidemia, unspecified; X58.XXXA Exposure to other specified factors, initial encounter
CPT/HCPCS: 73630; 80053; 85025; 85651; 86140; 96365; 99284; J3490